=== PATIENT | male | born 1980 | race Native Hawaiian/Other Pacific Islander ===

== ENCOUNTER 2017-05-13 15:26 | Emergency (ER) | payer BC ==
[2017-05-13 15:31] VITALS: BMI 28.7
[2017-05-13 15:34] VITALS: BP 149/75; PULSE 103; RESP 20; TEMP 99.1; O2SAT 98
--- NOTE | 2017-05-13 16:27 | C.PDOC ---
History Of Present Illness 36 y/o M c history of heroin abuse presents for detox. Patient states he injects heroin and wishes to stop. He states that when he stops using heroin, he gets withdrawal symptoms but no longer wishes to take heroin. He was denied admission at [facility] prior to arrival. Time Seen by Provider: 05/13/17 15:58 Chief Complaint (Nursing): Substance Abuse Past Medical History Vital Signs: Last Vital Signs Temp 99.1 F 05/13/17 15:31 Pulse 103 H 05/13/17 15:31 Resp 20 05/13/17 15:31 BP 149/75 05/13/17 15:31 Pulse Ox 98 05/13/17 15:31 Family History: States: Unknown Family Hx - Social History Hx Alcohol Use: Yes Hx Substance Use: Yes - Immunization History Hx Tetanus Toxoid Vaccination: No Hx Influenza Vaccination: No Hx Pneumococcal Vaccination: No Review Of Systems Except As Marked, All Systems Reviewed And Found Negative. Constitutional: Negative for: Fever Cardiovascular: Negative for: Chest Pain Physical Exam - Physical Exam Additional Physical Exam Comments: General: No acute distress. Gait: Steady. ED Course And Treatment O2 Sat by Pulse Oximetry: 98 Medical Decision Making Medical Decision Making: No detox beds are available at this time. The patient was informed of this and the procedure for calling in to inquire about bed availability. The patient questioned what should be done about his symptoms, and he was informed that heroin withdrawal is not fatal. The patient stood up from his stretcher and walked out of the ER during this exchange. A full physical exam was not performed. Disposition - Disposition Disposition: ELOPEMENT - ER ONLY Disposition Time: 16:29 Condition: FAIR Forms: [facility] (Estonian) - Clinical Impression Clinical Impression: Heroin abuse
== END 2017-05-13 16:24 | disposition left against medical advice (07) ==
LOC: C.ER 15:26
DX: F11.10 Opioid abuse, uncomplicated (principal)

== ENCOUNTER 2018-09-22 17:20 | Emergency (ER) | payer BC ==
[2018-09-22 17:20] VITALS: BMI 28.7
[2018-09-22] MEDS ORDERED: Naloxone 0.4 mg/ml Inj (Adult) ONE ×2 (17:32→17:33)
[2018-09-22] MEDS ORDERED: Naloxone 0.4 mg/ml Inj (Adult) SC STA (17:37)
--- NOTE | 2018-09-22 17:37 | C.PDOC ---
History Of Present Illness 38 years old male is brought to ED after he was found over dosed in an uber. As per , police states patient is known to them and has had prior disencounters with the same symptoms. As per , patient was at home eating with her then he stepped outside for a walk but he took too long, then she called him and the account executive answered stating that patient was found in an uber after possible heroin/ alcohol abuse. also reports she has not been aware of patient's heroin abuse and she denies patient's use of any medications. She states police showed her the heroin bag. She also states that "I found him (the patient) numerous t imes in the past passed out at home, but I thought it was just from alcohol." Patient was 68% apneic on initial exam. Patient is currently a poor historian, combative and not cooperating to questions. <Keiko Stiles - Last Filed: 09/22/18 19:06> History Per: Patient History/Exam Limitations: clinical condition Onset/Duration Of Symptoms: Hrs Current Symptoms Are (Timing): Still Present Suicide/Self Injury Attempted (Context): None Modifying Factor(s): Narcotics (Heroin) Involuntary Hold By: Emergency Physician Recent travel outside of the [place]: No Additional History Per: <Keiko Stiles - Last Filed: 09/22/18 19:06> Past Medical History Reviewed: Historical Data, Nursing Documentation, Vital Signs - Medical History PMH: No Chronic Diseases Surgical History: No Surg Hx Family History: States: Unknown Family Hx - Social History Hx Alcohol Use: Yes Hx Substance Use: Yes - Immunization History Hx Tetanus Toxoid Vaccination: No Hx Influenza Vaccination: No Hx Pneumococcal Vaccination: No <Keiko Stiles - Last Filed: 09/22/18 19:06> Vital Signs: Last Vital Signs Temp 98.4 F 09/22/18 17:46 Pulse 124 H 09/22/18 18:45 Resp 18 09/22/18 18:45 BP 129/75 09/22/18 18:45 Pulse Ox 68 L 09/22/18 19:07 <Keren Bernard - Last Filed: 09/22/18 20:10> Review Of Systems Review Of Systems: ROS cannot be obtained secondary to pt's inabilty to answer questions. (Due to patient being a poor historian, combative and not cooperative to answering questions) <Keiko Stiles - Last Filed: 09/22/18 19:06> Physical Exam - Physical Exam Appears: Combative, Agitated, Other (Sluggish, reactive to pain stimulus. ) Skin: Warm, Dry Head: Atraumatic, Normacephalic Eye(s): bilateral: Other (Pupils pin point ) Oral Mucosa: Moist Neck: Normal ROM, Supple Chest: Symmetrical, No Tenderness Cardiovascular: Rhythm Regular Respiratory: Normal Breath Sounds, No Rales, No Rhonchi, No Wheezing, Other (NARD) Gastrointestinal/Abdominal: Soft, No Tenderness Extremity: Normal ROM Extremity: Bilateral: Atraumatic, Normal Color And Temperature, Normal ROM Pulses: Left Radial: Normal, Right Radial: Normal Neurological/Psych: Other (No gross focal deficit. Focus pain response. Poor historian. ) <Keiko Stiles - Last Filed: 09/22/18 19:06> ED Course And Treatment - Laboratory Results Result Diagrams: 09/22/18 18:04 09/22/18 18:04 O2 Sat by Pulse Oximetry: 68 Pulse Ox Interpretation: Abnormal - Radiology CXR: Interpreted by Me CXR Interpretation: Yes: No Acute Disease <Keiko Stiles - Last Filed: 09/22/18 19:06> - Laboratory Results Result Diagrams: 09/22/18 18:04 09/22/18 18:04 Progress Note: pt refuses to stay and be monitored for longer period of time. Vitals are stable, and pt is aaox3. Sister and family are aaware(hipaa compliant) and are willing to take him home and assume responsibility. <Keren Bernard - Last Filed: 09/22/18 20:10> Progress - Re-Evaluation Re-evaluation Note: 09/22/18 18:01 AWAKE NO SIGNS OF NARCOTIC OVERDOSE. PT CONSENTS TO FAMILY @ BEDSIDE DURING EXAM "I WANT THEM HERE FOR EVERYTHING". PT DENIES DRUG ABUSE. 09/22/18 19:06 +OPIATES. AWAKE VSS. PT STILL CONSENTS TO FAMILY @ BEDSIDE, AWARE OF ER FINDINGS. - Data Reviewed Data Reviewed: Lab, Diagnostic imaging, EKG, Old records - Critical Care Citical Care: Excluding Proc Time Critical Care Time: 90 minutes - Continuity of Care Discussed patient case with:: Patient, Family-HIPPA compliant <GoKeiko - Last Filed: 09/22/18 19:06> Against Medical Advice - AMA Patient Left Against Medical Advice: The patient declines admission to the hospital and wishes to leave the Emergency Department. This action is against my medical advice. This decision was made with informed refusal. The patient was told that admission to the hospital is necessary. Explanation of the reasons why were discussed. The risks of leaving were explained to the patient and include, but are not limited to, worsening of known or currently unknown conditions, permanent disability and from undiagnosed or untreated conditions. The patient has the capacity to make this informed decision and understands my explanation of the current medical problem and risks of leaving. The patient voluntarily accepts these risks and signed an AMA form documenting our conversation. The patient was given the opportunity to ask questions and reconsider. The patient was encouraged to return to the Emergency Department at any time for further care. <Keren Bernard - Last Filed: 09/22/18 20:10> Medical Decision Making Medical Decision Making: Plan: * Narcan * Blood work * Urinalysis Progress: 5:30PM: s/p 2 mg Narcan administered in ER, patient is alert, agitated, fighting attempt to IV placement, and is not at 98%. Security is called for patient to be in 4-point restraint. <Keiko Stiles - Last Filed: 09/22/18 19:06> Disposition - Disposition Disposition Time: 19:00 <GoKeiko Filed: 09/22/18 19:06> Counseled Patient/Family Regarding: Studies Performed, Diagnosis, Need For Followup, Smoking Cessation <Keren Bernard - Last Filed: 09/22/18 20:10> - Disposition Disposition: AGAINST MEDICAL ADVICE Condition: FAIR Additional Instructions: Please return if symptoms recur Instructions: Narcotic Overdose (DC) - Clinical Impression Clinical Impression: Narcotic overdose, Hypoxia, Respiratory depression - Scribe Statement The provider has reviewed the documentation as recorded by the Johannaibemilee Estrada All medical record entries made by the Scribe were at my direction and personally dictated by me. I have reviewed the chart and agree that the record accurately reflects my personal performance of the history, physical exam, medical decision making, and the department course for this patient. I have also personally directed, reviewed, and agree with the discharge instructions and disposition. <Keiko Stiles - Last Filed: 09/22/18 19:06> Physician Patient Turnover Patient Signed Over To: Keren Bernard Handoff Comments: FU ED OBSERVATION, DISPO <Keiko Stiles - Last Filed: 09/22/18 19:06>
[2018-09-22 18:07] LABS: EOS # 0.6 K/uL (0.0-0.7); RED CELL DISTRIBUTION WIDTH 17.1 % (11.5-14.5)
[2018-09-22 18:22] LABS: ALB/GLOB RATIO 1.5 (1.0-2.1); ALBUMIN 4.9 g/dL (3.5-5.0); ALT/SGPT 131 U/L (21-72); AST/SGOT 81 U/L (17-59); BLOOD UREA NITROGEN 18 mg/dL (9-20); CALCIUM 8.5 mg/dl (8.6-10.4); GFR NON-AFRICAN AMERICAN > 60
[2018-09-22 18:23] LABS: BASO # 0.1 K/uL (0.0-0.2); BASO % 0.8 % (0.0-2.0); EOS % 3.5 % (0.0-4.0); HEMOGLOBIN 14.5 g/dL (12.0-18.0); LYMPH # 9.1 K/uL (1.0-4.3); LYMPH % 54.8 % (20.0-40.0); MEAN CELL VOLUME 65.6 fL (80.0-94.0); MEAN CORPUSCULAR HEMOGLOBIN 20.9 pg (27.0-31.0); MEAN CORPUSCULAR HGB CONC 31.9 g/dL (33.0-37.0); MEAN PLATELET VOLUME 8.7 fL (7.2-11.7); MONO # 1.3 K/uL (0.0-0.8); NEUT # 5.4 K/uL (1.8-7.0); NEUT % 32.9 % (50.0-75.0); NRBC % 0.2 % (0.0-2.0); RBC 6.91 Mil/uL (4.40-5.90); WHITE BLOOD COUNT 16.5 K/uL (4.8-10.8)
[2018-09-22 18:46] LABS: URINE BILIRUBIN NEGATIVE (NEGATIVE); URINE BLOOD NEGATIVE (NEGATIVE); URINE CLARITY Clear (Clear); URINE COLOR Colorless (YELLOW); URINE GLUCOSE (UA) NORMAL (Normal); URINE LEUKOCYTE ESTERASE NEG Leu/uL (Negative); URINE PROTEIN NEGATIVE (NEGATIVE); URINE UROBILINOGEN NORMAL mg/dL (0.2-1.0)
[2018-09-22 18:59] LABS: BARBITURATES, UR NEGATIVE (NEGATIVE); BENZODIAZEPINES, UR NEGATIVE (NEGATIVE); PHENCYCLIDINE, UR NEGATIVE (NEGATIVE)
[2018-09-22 19:00] LABS: OPIATES, UR POSITIVE (NEGATIVE)
[2018-09-22 20:22] VITALS: RESP 20; TEMP 98.7
[2018-09-22 20:26] VITALS: BP 124/78; PULSE 88; O2SAT 99
--- NOTE | 2018-09-23 11:44 | RAD ---
HISTORY: OVERDOSE COMPARISON: None available. TECHNIQUE: Chest, one view. FINDINGS: Examination limited by habitus and hypoinflation. LUNGS: Mild right basilar atelectasis. No focal consolidation. Please note that chest x-ray has limited sensitivity for the detection of pulmonary masses. PLEURA: No significant pleural effusion identified. No definite pneumothorax . CARDIOVASCULAR: Heart size appears top normal. No significant atherosclerotic calcification present. OSSEOUS STRUCTURES: No acute osseous abnormality identified. VISUALIZED UPPER ABDOMEN: Unremarkable. OTHER FINDINGS: None. IMPRESSION: Hypoinflation. Mild right basilar atelectasis.
== END 2018-09-22 20:00 | disposition left against medical advice (07) ==
LOC: C.ER 17:20
DX: T40.601A Poisoning by unspecified narcotics, accidental (unintentional), initial encounter (principal); R09.02 Hypoxemia; G93.89 Other specified disorders of brain
CPT/HCPCS: 71045; 80053; 81001; 85025; 99285; G0480